=== PATIENT | female | born 1980 | race Caucasian/White ===

== ENCOUNTER 2017-10-18 19:27 | Emergency (ER) | payer BC ==
[~2017-10-18] VITALS: Ht 170.2 cm; Wt 73.6 kg
[~2017-10-18 19:27] MED LIST: ATIVAN 0.50.5 MG/TAB PO; OMNICEF 300MG300 MG PO; PHENERGAN 25 TA25 MG
[2017-10-18 19:29] VITALS: TEMP 98.3
[2017-10-18 20:05] LABS: COLLECTION METHOD CLEAN CATCH
[2017-10-18 20:10] LABS: BASO % 0.4 % (0.0-2.0); EOS # 0.1 (0.0-0.7); EOS % 1.3 % (0-4.0); GRAN # 6.8 (1.4-6.5); GRAN % 67.9 % (42.2-75.2); HEMATOCRIT 39.2 % (37.0-47.0); HEMOGLOBIN 13.8 g/dl (12.5-16.0); LYMPH # 2.2 (1.2-3.4); LYMPH % 21.5 % (20.0-51.0); MEAN CELL VOLUME 91 fl (80.0-100.0); MEAN CORPUSCULAR HEMOGLOBIN 32 pg (27.0-31.0); MEAN CORPUSCULAR HGB CONC 35 g/dl (33.0-37.0); MEAN PLATELET VOLUME 8.9 fl (7.4-10.4); MONO # 0.9 (0.1-0.6); MONO % 8.5 % (1.7-9.3); PLATELET COUNT 324 K/mm3 (130-400); RED BLOOD COUNT 4.31 M/mm3 (4.10-5.30); REDCELL DISTRIBUTION WIDTH-CV 11.7 % (11.5-14.5)
[2017-10-18 20:12] LABS: MUCOUS Present /lpf; PH 5 (5-8); SQUAMOUS EPITHELIAL 0-2 /hpf; URINE APPEARANCE Clear; URINE BACTERIA None Seen /hpf; URINE BILIRUBIN Negative (NEGATIVE); URINE BLOOD Negative (NEGATIVE); URINE COLOR Yellow; URINE GLUCOSE Negative (NEGATIVE); URINE KETONE Negative (NEGATIVE); URINE LEUKOCYTE ESTERASE Negative (NEGATIVE); URINE NITRATE Negative (NEGATIVE); URINE PROTEIN(semi-quant) Negative (NEGATIVE); URINE RBC 0-2 /hpf; URINE UROBILINOGEN Negative (NEGATIVE)
[2017-10-18] MEDS ORDERED: LEVOXYL0.125 MG PO ×2 (20:17)
[2017-10-18 20:20] LABS: ALBUMIN 4.1 gm/dL (3.5-5.0); BILIRUBIN,TOTAL 0.2 mg/dL (0.0-1.0); C-REACTIVE PROTEIN 0.6 mg/dL (0.0-0.9); CREATININE, serum 0.6 mg/dL (0.52-1.25); POTASSIUM 3.6 mmol/L (3.4-5.0); TOTAL PROTEIN 7.5 gm/dL (6.4-8.2)
[2017-10-18] MEDS ORDERED: ZOFRAN ODT4 MG PO (21:41)
[2017-10-18] MEDS ORDERED: NORCO 325 MG-51 TAB PO (21:41)
[2017-10-18 21:57] VITALS: BP 121/72; PULSE 73
== END 2017-10-18 21:59 | disposition home or self-care (01) ==
LOC: COL.ER 19:27
PROVIDERS: Emergency Medicine
DX: R10.11 Right upper quadrant pain (principal); E89.0 Postprocedural hypothyroidism; Z90.721 Acquired absence of ovaries, unilateral
CPT/HCPCS: J1170; J2405; J7030; Q9967

== ENCOUNTER → 2017-10-25 | Outpatient (CLI) | payer BC ==
[~2017-10-25] MED LIST changes: +LEVOXYL0.125 MG PO; +NORCO 325 MG-51 TAB PO; +ZOFRAN ODT4 MG PO
== END ==
LOC: COL.RAD 06:08
DX: R10.11 Right upper quadrant pain (principal)
CPT/HCPCS: A9537

== ENCOUNTER 2018-06-29 07:17 | Emergency (ER) | payer BC ==
[~2018-06-29] VITALS: Ht 170.2 cm; Wt 70.9 kg
[2018-06-29 07:24] VITALS: TEMP 97.2
[2018-06-29 07:51] LABS: BASO % 0.2 % (0.0-2.0); EOS # 0.1 (0.0-0.7); EOS % 0.5 % (0-4.0); GRAN # 8.2 (1.4-6.5); GRAN % 78.5 % (42.2-75.2); HEMATOCRIT 42.9 % (37.0-47.0); HEMOGLOBIN 14.6 g/dl (12.5-16.0); LYMPH # 1.5 (1.2-3.4); LYMPH % 14.5 % (20.0-51.0); MEAN CELL VOLUME 94 fl (80.0-100.0); MEAN CORPUSCULAR HEMOGLOBIN 32 pg (27.0-31.0); MEAN CORPUSCULAR HGB CONC 34 g/dl (33.0-37.0); MONO # 0.6 (0.1-0.6); MONO % 6.1 % (1.7-9.3); PLATELET COUNT 278 K/mm3 (130-400); RED BLOOD COUNT 4.57 M/mm3 (4.10-5.30); REDCELL DISTRIBUTION WIDTH-CV 11.7 % (11.5-14.5)
[2018-06-29] MEDS ORDERED: MIRENA52 MG IY (08:00)
[2018-06-29 08:07] LABS: ALBUMIN 4.1 gm/dL (3.5-5.0); BILIRUBIN,TOTAL 0.9 mg/dL (0.0-1.0); C-REACTIVE PROTEIN 0.8 mg/dL (0.0-0.9); CALCIUM 9.2 mg/dL (8.4-10.2); CREATININE, serum 0.67 (0.52-1.25); POTASSIUM 3.5 mmol/L (3.4-5.0); TOTAL PROTEIN 7.5 gm/dL (6.4-8.2)
[2018-06-29] MEDS ORDERED: ZITHROMAX TRI-500 MG PO (09:37)
[2018-06-29 09:43] LABS: COLLECTION METHOD CLEAN CATCH
[2018-06-29 09:50] LABS: PH 6 (5-8); SQUAMOUS EPITHELIAL None Seen /hpf; URINE APPEARANCE Clear; URINE BACTERIA None Seen /hpf; URINE BILIRUBIN Negative (NEGATIVE); URINE BLOOD 1+ (NEGATIVE); URINE COLOR Straw; URINE GLUCOSE Negative (NEGATIVE); URINE KETONE Trace (NEGATIVE); URINE LEUKOCYTE ESTERASE Negative (NEGATIVE); URINE NITRATE Negative (NEGATIVE); URINE PROTEIN(semi-quant) Negative (NEGATIVE); URINE RBC 0-2 /hpf; URINE UROBILINOGEN Negative (NEGATIVE)
[2018-06-29 10:33] VITALS: BP 109/68; PULSE 66
== END 2018-06-29 10:34 | disposition home or self-care (01) ==
LOC: COL.ER 07:17
PROVIDERS: Emergency Medicine
DX: K52.9 Noninfective gastroenteritis and colitis, unspecified (principal)
CPT/HCPCS: J1885; J2270; J2405; J7030; Q9967

== ENCOUNTER 2019-08-25 21:49 | Observation (INO) | payer BC ==
[~2019-08-25] VITALS: Ht 170.2 cm; Wt 70.5 kg
[~2019-08-25 21:49] MED LIST changes: +MIRENA52 MG IY; +ZITHROMAX TRI-500 MG PO
[2019-08-25] MEDS ORDERED: WELLBUTRIN XL150 MG PO (21:56)
[2019-08-25 22:16] LABS: COLLECTION METHOD CLEAN CATCH
[2019-08-25 22:18] LABS: BASO % 0.3 % (0.0-2.0); EOS # 0.1 (0.0-0.7); EOS % 1.2 % (0-4.0); GRAN # 5.7 (1.4-6.5); GRAN % 65.8 % (42.2-75.2); HEMOGLOBIN 14.2 g/dl (12.5-16.0); LYMPH # 2.1 (1.2-3.4); LYMPH % 24.7 % (20.0-51.0); MEAN CELL VOLUME 95 fl (80.0-100.0); MEAN CORPUSCULAR HEMOGLOBIN 32 pg (27.0-31.0); MEAN CORPUSCULAR HGB CONC 34 g/dl (33.0-37.0); MEAN PLATELET VOLUME 8.8 fl (7.4-10.4); MONO # 0.7 (0.1-0.6); MONO % 7.7 % (1.7-9.3); PLATELET COUNT 300 K/mm3 (130-400); RED BLOOD COUNT 4.41 M/mm3 (4.10-5.30); REDCELL DISTRIBUTION WIDTH-CV 11.3 % (11.5-14.5)
[2019-08-25 22:23] LABS: MUCOUS Present /lpf; PH 5 (5-8); SQUAMOUS EPITHELIAL 0-2 /hpf; URINE APPEARANCE Clear; URINE BACTERIA None Seen /hpf; URINE BILIRUBIN Negative (NEGATIVE); URINE BLOOD 2+ (NEGATIVE); URINE COLOR Yellow; URINE GLUCOSE Negative (NEGATIVE); URINE KETONE Negative (NEGATIVE); URINE LEUKOCYTE ESTERASE Negative (NEGATIVE); URINE NITRATE Negative (NEGATIVE); URINE PROTEIN(semi-quant) Negative (NEGATIVE)
[2019-08-25 22:31] LABS: ALBUMIN 4.3 gm/dL (3.5-5.0); BILIRUBIN,TOTAL 0.8 mg/dL (0.0-1.0); CALCIUM 9.3 mg/dL (8.4-10.2); CREATININE, serum 0.75 (0.52-1.25); POTASSIUM 3.7 mmol/L (3.4-5.0)
[2019-08-26 01:26] VITALS: BP 107/70; PULSE 57; TEMP 98
[2019-08-26] MEDS ORDERED: D3-5050000 IU PO (01:37)
[2019-08-26] MEDS ORDERED: DUPIXENT300 MG/2 M SQ (01:39)
--- NOTE | 2019-08-26 01:47 | NUR ---
Pt. arrived to the floor via wheelchair. Pt. is A&OX3, assessment complete. IV to lt. ac patent. Pt. reports pain at a 7 on pain scale, will give pain meds per orders.
[2019-08-26 03:54] VITALS: BP 102/58; PULSE 54; TEMP 97.9
--- NOTE | 2019-08-26 07:06 | NUR ---
Lying in bed with eyes open. Rates pain to right lower quad 4/10. Patient denies needs at this time.
[2019-08-26 07:27] VITALS: BP 100/61; PULSE 52; TEMP 98.3
[2019-08-26 07:39] LABS: BASO % 0.3 % (0.0-2.0); EOS # 0.1 (0.0-0.7); EOS % 0.9 % (0-4.0); GRAN # 5.4 (1.4-6.5); GRAN % 72.4 % (42.2-75.2); HEMOGLOBIN 12.3 g/dl (12.5-16.0); LYMPH # 1.3 (1.2-3.4); LYMPH % 17.7 % (20.0-51.0); MEAN CELL VOLUME 96 fl (80.0-100.0); MEAN CORPUSCULAR HEMOGLOBIN 33 pg (27.0-31.0); MEAN CORPUSCULAR HGB CONC 34 g/dl (33.0-37.0); MONO # 0.6 (0.1-0.6); MONO % 8.3 % (1.7-9.3); PLATELET COUNT 245 K/mm3 (130-400); RED BLOOD COUNT 3.77 M/mm3 (4.10-5.30); REDCELL DISTRIBUTION WIDTH-CV 11.6 % (11.5-14.5)
[2019-08-26 07:40] LABS: ALANINE AMINOTRANSFERASE 11 U/L (4-34); ALBUMIN 3.2 gm/dL (3.5-5.0); ALKALINE PHOSPHATASE 43 U/L (50-136); ANION GAP 4 mmol/L (7-16); AST,SGOT 17 U/L (15-37); BILIRUBIN,TOTAL 0.6 mg/dL (0.0-1.0); BLOOD UREA NITROGEN 12 mg/dL (7-17); C-REACTIVE PROTEIN < 0.5 mg/dL (0.0-0.9); CARBON DIOXIDE 21 mmol/L (22-30); CHLORIDE 112 mmol/L (98-107); CREATININE, serum 0.65 (0.52-1.25); GLUCOSE 93 mg/dL (74-106); POTASSIUM 3.8 mmol/L (3.4-5.0); SODIUM 137 mmol/L (137-145); TOTAL PROTEIN 6.2 gm/dL (6.4-8.2)
[2019-08-26 07:49] LABS: HEMATOCRIT 36.3 % (37.0-47.0)
--- NOTE | 2019-08-26 09:02 | NUR ---
Lying in bed with eyes open. Spouse at bedside. Patient rates pain in right lower abd 4/10. Denies needs at this time.
--- NOTE | 2019-08-26 09:40 | NUR ---
SUSHANT met with the patient and the patient's , Augustus to complete initial intake. The patient lives in [place] with Augustus. The patient is independent with ADLs and denies DME use. The patient's PCP is Dr. Bauman and patient receives medications from [facility]. The patient does not have advanced directives in the EMR and was not interested in a DPOA-HC form. The patient plans to return home at discharge. There are no additional needs at this time.
--- NOTE | 2019-08-26 10:39 | NUR ---
First visit from the chemistry technician. No needs right now.
[2019-08-26] MEDS ORDERED: ULTRAM 50MG TAB50 MG PO (11:59)
[2019-08-26] MEDS ORDERED: MOTRIN 600600 MG/TAB PO (11:59)
[2019-08-26 12:20] VITALS: BP 108/68; PULSE 55; TEMP 98
--- NOTE | 2019-08-26 12:38 | NUR ---
Lying in bed with eyes open. Spouse at bedside. Patient rates pain in right lower abd 4/10, does not feel she needs medication at this time. Explain the diet order placed and that we would make sure that they are sending a tray up for her to eat. Explain order for Ultram and that we will use this medication before IV pain medication. Patient verbalizes understanding and denies further needs at this time.
--- NOTE | 2019-08-26 13:39 | NUR ---
Rates pain 5.5/10 and requests pain medication. Pain is in right lower abd. Administered Ultram as prescribed.
--- NOTE | 2019-08-26 14:40 | NUR ---
Lying in bed with eyes open. Rates pain 4/10 and feels that the Ultram helped alleviate some of the pain. at bedside. Denies any additional needs at this time.
[2019-08-26 15:54] VITALS: BP 110/66; PULSE 72; TEMP 98.5
--- NOTE | 2019-08-26 16:07 | NUR ---
Dr. Castañeda calls to check on patient. Update provided. Dr. Castañeda says that the patient is okay to go home. Spoke with the patient and informed patient and her spouse of the plan. They agree with going home. Explain that we will get her discharge paperwork together at this time.
--- NOTE | 2019-08-26 16:24 | NUR ---
Reviewed discharge instructions with the patient and her spouse. Denies questions. Patient signs discharge paperwork. Discharge packet provided to the patient. Patient ambulates out to POV with this nurse and her spouse.
== END 2019-08-26 16:24 | disposition home or self-care (01) ==
LOC: COL.ER 21:49 → SURG 08-26 00:32 → COL.ER 08-26 01:16 → SURG 08-26 16:24
PROVIDERS: Emergency Medicine; ADMIT Surgery
DX: R10.31 Right lower quadrant pain (principal); E89.0 Postprocedural hypothyroidism; Z97.5 Presence of (intrauterine) contraceptive device; Z90.79 Acquired absence of other genital organ(s); Z90.721 Acquired absence of ovaries, unilateral; Z79.899 Other long term (current) drug therapy; Z90.49 Acquired absence of other specified parts of digestive tract
CPT/HCPCS: G0378; J1170; J1885; J2270; J2405; J2543; J2550; J7030; Q9967

== ENCOUNTER → 2019-09-27 | Outpatient (CLI) | payer BC ==
[~2019-09-27] MED LIST changes: +D3-5050000 IU PO; +DUPIXENT300 MG/2 M SQ; +MOTRIN 600600 MG/TAB PO; +ULTRAM 50MG TAB50 MG PO; +WELLBUTRIN XL150 MG PO
== END ==
LOC: MC.RAD 11:25
DX: Z12.31 Encounter for screening mammogram for malignant neoplasm of breast (principal); R92.1 Mammographic calcification found on diagnostic imaging of breast

== ENCOUNTER → 2019-10-03 | Outpatient (CLI) | payer BC | LOC: MC.RAD 10-01 14:00 | DX: Z12.31 Encounter for screening mammogram for malignant neoplasm of breast (principal); R92.8 Other abnormal and inconclusive findings on diagnostic imaging of breast | CPT/HCPCS: G0279 ==

== ENCOUNTER → 2019-10-09 | Outpatient (CLI) | payer BC | LOC: MC.RAD 07:00 | DX: N63.20 Unspecified lump in the left breast, unspecified quadrant (principal) ==

== ENCOUNTER → 2020-03-11 | Outpatient (CLI) | payer BC | LOC: ZCOL.LAB 11:14 | PROVIDERS: Internal Medicine Gastroenterology | DX: Z01.89 Encounter for other specified special examinations (principal) ==

== ENCOUNTER → 2023-08-29 | Outpatient (CLI) | payer BC ==
[2005-11-24 11:24] VITALS: TEMP 95.8
== END ==
LOC: MC.RAD 14:30
DX: Z12.31 Encounter for screening mammogram for malignant neoplasm of breast (principal)